=== PATIENT | female | born 1955 | race African-American/Black ===

== ENCOUNTER 2021-04-21 12:43 | Observation (INO) | payer OTHER ==
[2021-04-21 12:53] VITALS: BMI 27.2
[2021-04-21] MEDS ORDERED: ACETAMINOPHEN 1000 MG/100 ML BAG IVPB ONE (16:00)
[2021-04-21] MEDS ORDERED: MAG HYDROX/AL HYDROX/SIMETH 30 ML UNIT-DOSE CUP PO ONE (16:00)
[2021-04-21] MEDS ORDERED: FAMOTIDINE 20 MG/50 ML IVPB 20 MG/50 ML MG IVPB ONE ×2 (16:00→16:34)
[2021-04-21] MEDS ORDERED: ACETAMINOPHEN INJECTION 100 ML IVPB ONE (16:34)
[2021-04-21] MEDS ORDERED: MAG HYDROX/AL HYDROX/SIMETH 30 ML UNIT-DOSE CUP ONE (16:34)
[2021-04-21] MEDS ORDERED: ASPIRIN 81 MG CHEWABLE TABLETS PO ONE (16:42)
[2021-04-21] MEDS ORDERED: ASPIRIN 81 MG CHEWABLE TABLETS ONE (16:45)
[2021-04-21 17:05] LABS: BASO % 0.2 % (0-2.0); EOS % 0.5 % (0-4.5); HEMATOCRIT 39.7 % (32.4-45.2); HEMOGLOBIN 13.3 GM/dL (10.7-15.3); LYMPH % 10.2 % (8-40); MCH 30.6 pg (25.7-33.7); MCHC 33.6 g/dl (32.0-36.0); MEAN CELL VOLUME 91.3 fl (80-96); MEAN PLT VOLUME 9.1 fl (7.5-11.1); MONO % 6.6 % (3.8-10.2); NEUT % 82.5 % (42.8-82.8); PLATELET COUNT 281 10^3/uL (134-434); RBC 4.35 M/mm3 (3.60-5.2); RDW 13.7 % (11.6-15.6); WHITE BLOOD COUNT 11.2 K/mm3 (4.0-10.0)
[2021-04-21 17:09] LABS: INR 1.08 (0.83-1.09); PROTHROMBIN TIME (PATIENT) 12.4 SEC (9.7-13.0)
[2021-04-21 17:12] LABS: ACTIVATED PTT 29.8 SECONDS (25.2-36.5); CHLORIDE 103 mmol/L (98-107); SODIUM 143 mmol/L (136-145)
[2021-04-21 17:14] LABS: CALCIUM 9.6 mg/dL (8.5-10.1)
[2021-04-21 17:15] LABS: ANION GAP 9 MMOL/L (8-16); BLOOD UREA NITROGEN 13.3 mg/dL (7-18); CO2 31 mmol/L (21-32); GLUCOSE,RANDOM 92 mg/dL (74-106)
[2021-04-21 17:18] LABS: CREATININE 0.7 mg/dL (0.55-1.3); SGOT/AST 24 U/L (15-37); SGPT/ALT 26 U/L (13-61)
[2021-04-21 17:20] LABS: BILIRUBIN,TOTAL 0.4 mg/dL (0.2-1)
[2021-04-21 17:21] LABS: ALK PHOS 103 U/L (45-117)
[2021-04-21] MEDS ORDERED: POLYETHYLENE GLYCOL (HEALTHYLAX) 3350 17 GM PACKET PO PRN (23:59)
[2021-04-21] MEDS ORDERED: ACETAMINOPHEN 325 MG TABLET (FP) PO PRN (23:59)
[2021-04-22] MEDS ORDERED: MAG HYDROX/AL HYDROX/SIMETH 30 ML UNIT-DOSE CUP PO PRN (00:05)
[2021-04-22] MEDS ORDERED: ZOLPIDEM TARTRATE 5 MG TABLET PO ONE (00:15)
[2021-04-22] MEDS ORDERED: ALBUTEROL SO4 HFA INHALER IH PRN (00:18)
[2021-04-22] MEDS ORDERED: ZOLPIDEM TARTRATE 5 MG TABLET ONE (01:05)
[2021-04-22] MEDS ORDERED: ACETAMINOPHEN 1000 MG/100 ML BAG IVPB ONE (01:50)
[2021-04-22] MEDS ORDERED: ACETAMINOPHEN INJECTION 100 ML IVPB ONE (01:55)
[2021-04-22] MEDS: INSULIN SLIDING SCALE (NOVOLOG) 1 VIAL SQ SCH ×2 (06:37→11:39)
[2021-04-22] MEDS ORDERED: ACETAMINOPHEN 1000 MG/100 ML BAG IVPB PRN (08:00)
[2021-04-22] MEDS ORDERED: PANTOPRAZOLE 20 MG TABLET PO SCH (10:00)
[2021-04-22] MEDS ORDERED: ENOXAPARIN NA (PORCINE) 40 MG/0.4 ML DISP.SYRIN SQ SCH (10:00)
[2021-04-22] MEDS ORDERED: FLUTICASONE PROP 0.05% 16 GM NASAL SPRAY NS SCH (10:00)
[2021-04-22] MEDS ORDERED: PANTOPRAZOLE 20 MG TABLET PO ONE (10:03)
[2021-04-22] MEDS ORDERED: ENOXAPARIN NA (PORCINE) 40 MG/0.4 ML DISP.SYRIN SQ ONE (10:03)
[2021-04-22] MEDS ORDERED: CHOLECALCIFEROL (VIT D3) 1,000 UNIT (25 MCG) TABLET PO SCH (12:22)
[2021-04-22] MEDS ORDERED: ZINC SULFATE 220 MG CAPSULE (FP) PO SCH (12:30)
[2021-04-22] MEDS ORDERED: ASCORBIC ACID 500 MG TABLET (FP) PO SCH (12:30)
[2021-04-22 13:41] VITALS: BP 103/72; PULSE 61; TEMP 97.9
== END 2021-04-22 14:55 | disposition home or self-care (01) ==
LOC: JER 12:43 → JERBED 23:58
PROVIDERS: ADMIT Hospitalist; ATTEND Internal Medicine
PROC: 3E033NZ Introduction of Analgesics, Hypnotics, Sedatives into Peripheral Vein, Percutaneous Approach (ICD-10-PCS; principal; 2021-04-21)
PROC: 3E033GC Introduction of Other Therapeutic Substance into Peripheral Vein, Percutaneous Approach (ICD-10-PCS; 2021-04-21)
PROC: 3E023GC Introduction of Other Therapeutic Substance into Muscle, Percutaneous Approach (ICD-10-PCS; 2021-04-21)
DX: U07.1 COVID-19 (principal); R00.0 Tachycardia, unspecified; K21.9 Gastro-esophageal reflux disease without esophagitis; I10 Essential (primary) hypertension; Z88.5 Allergy status to narcotic agent; R73.03 Prediabetes
CPT/HCPCS: 36415; 71046-TC-FY; 80053; 82550; 82962; 84484; 85025; 85379; 85610; 85730; 86850; 86900; 86901; 87804; 93005; 93010; 96365; 96372; 96375; 99285-25; C9803-CS; G0378; U0003; U0005

== ENCOUNTER 2021-08-02 22:36 | Emergency (ER) | payer OTHER ==
[2021-08-02 22:52] VITALS: BP 141/85; PULSE 102; TEMP 97.4; BMI 27.1
[2021-08-02] MEDS ORDERED: diazePAM 5 MG TABLET PO ONE (23:32)
[2021-08-02] MEDS ORDERED: IBUPROFEN 200 MG TABLET PO ONE (23:32)
[2021-08-02] MEDS ORDERED: ACETAMINOPHEN 500 MG TABLET (FP) PO ONE (23:32)
[2021-08-02] MEDS ORDERED: LIDOCAINE 5% TOPICAL PATCH TP ONE (23:33)
[2021-08-02] MEDS ORDERED: diazePAM 5 MG TABLET ONE (23:41)
[2021-08-02] MEDS ORDERED: IBUPROFEN 400 MG TABLET (FP) PO ONE ×2 (23:41)
[2021-08-02] MEDS ORDERED: ACETAMINOPHEN 325 MG TABLET (FP) ONE (23:42)
[2021-08-02] MEDS ORDERED: LIDOCAINE 5% TOPICAL PATCH ONE (23:42)
[2021-08-03] MEDS ORDERED: LIDOCAINE PATCH REMOVAL MC ONE (12:00)
== END 2021-08-03 04:42 | disposition home or self-care (01) ==
LOC: JER 22:36
DX: M54.2 Cervicalgia (principal)
CPT/HCPCS: 99283-25